=== PATIENT | male | born 1990 | race Caucasian/White ===

== ENCOUNTER 2017-10-22 02:00 | Emergency (ER) | payer OTHER, SELFPAY ==
[2017-10-22 02:08] VITALS: BP 106/65; PULSE 45; RESP 18; TEMP 36.5; O2SAT 100
[2017-10-22] MEDS: ONDANSETRON 4 MG ODT PO (03:46)
--- NOTE | 2017-10-22 03:54 | ED_ITS ---
HPI - Extremity Problem General Chief complaint: Extremity Problem,Nontraumatic Stated complaint: right index finger swollen and red Time Seen by Provider: 10/22/17 02:10 Source: patient Mode of arrival: ambulatory Limitations: no limitations History of Present Illness HPI Narrative: 19-year-old otherwise healthy male presents with a chief complaint of a painful swollen right index finger in the absence of injury. He states has been worsening over the past few days and quite painful to touch. Patient denies any systemic findings such as fever, chills nor nausea or vomiting. He has full range of motion and can make a fist without difficulty. He denies any history of the same. MD Complaint: extremity pain Onset (ago): day(s) Pain Consistency: constant Location: right Quality: burning and aching Radiation: none Relieving factors: nothing Exacerbating factors: range of motion and palpation Associated symptoms: denies other symptoms Related Data Previous Rx's Medication Instructions Recorded doxycycline hyclate 100 mg PO BID #20 tab 10/22/17 Allergies Allergy/AdvReac Type Severity Reaction Status Date / Time No Known Drug Allergies Allergy Verified 10/22/17 02:11 Review of Systems Review of Systems All systems reviewed & are unremarkable except as noted in HPI and below Constitutional Denies chills, Denies fever(s), Denies lethargy and Denies weakness Eyes Denies change in vision, Denies eye discharge, Denies irritation and Denies loss of vision ENT Ears, Nose, Mouth, and Throat: Denies change in voice, Denies neck pain and Denies sore throat Cardiovascular Denies chest pain, Denies irregular heart rhythm, Denies lightheadedness, Denies palpitations, Denies dyspnea, Denies dyspnea on exertion and Denies orthopnea Respiratory Denies cough, Denies dyspnea, Denies dyspnea on exertion and Denies wheezing Gastrointestinal Gastrointestinal: Denies abdominal pain, Denies change in bowel habits, Denies diarrhea, Denies nausea and Denies vomiting Genitourinary Denies hematuria, Denies flank pain, Denies urinary incontinence and Denies urinary urgency Musculoskeletal Reports limited range of motion and Denies neck pain Integumentary/Breasts Denies pruritus, Reports erythema, Denies rash, Reports skin pain, Reports skin swelling and Denies wounds Neurologic Denies confusion, Denies loss of vision and Denies weakness Psychiatric Denies anxiety, Denies confusion, Denies depression, Denies homicidal ideation and Denies suicidal ideation Endocrine Denies palpitations Hematologic/Lymphatic Denies easy bruising Allergic/Immunologic Denies wheezing PFSH Social History Smoking Status: Never smoker Exam Narrative Exam Narrative: GEN: AOx3 and in mild distress EYES: Pupils are equal, round, and reactive to light and accommodation. Extraoccular muscles are intact bilaterally. There is no subconjunctival hemorrhage or exudate. CHEST: Lungs are clear to auscultation bilaterally and free of wheezes, rales, or rhonchi. Heart rate is regular rhythm, there are no murmurs, clicks, rubs, or gallops. There is no chest wall tenderness. ABD: Abdomen is soft and nontender. There is no guarding or rebound. Bowel sounds are normal in all 4 quadrants. There is no mass or organomegaly. EXT: Full but painful range of motion of the right index finger. Swelling, erythema and tenderness at the nail fold of right index finger consistent with paronychia. No signs of flexor tenosynovitis such as sausage finger, stuck in flexion, painful passive extension, versus other. SKIN: Warm, pink, and dry. Initial Vital Signs Initial Vital Signs: Vital Signs Temperature 97.7 F 10/22/17 02:08 Pulse Rate 45 L 10/22/17 02:08 Respiratory Rate 18 10/22/17 02:08 Blood Pressure 106/65 10/22/17 02:08 Pulse Oximetry 100 10/22/17 02:08 Procedures Abscess I/D Site: hand Side (if applicable): right Technique: incised with #11 blade Complications: other (Initial I and D attempt was without any anesthesia and resulted in very minimal drainage. Digital block then performed) Course Orders Ordered: Discontinued Medications Ondansetron HCl (Zofran Odt) 4 mg PO NOW ONE Stop: 10/22/17 03:38 Last Admin: 10/22/17 03:46 Dose: 4 mg Reevaluation(s) Reevaluation #1: During digital block patient became pale and diaphoretic in actually had a brief syncopal episode, presumably vagal in nature. Upon waking patient felt nauseated and states he has had those reactions in the past Vital Signs - 8 hr 10/22/17 02:08 10/22/17 04:39 Temperature 97.7 F Pulse Rate 45 L 45 L Respiratory Rate 18 16 Blood Pressure 106/65 96/61 Pulse Oximetry 100 100 Discharge Plan Departure Patient Disposition: Home Clinical Impression: Paronychia Discharge Date/Time: 10/22/17 04:39 Interventions: ED Discharge Assessment Last Done: 10/22/17 04:39 Instructions: DI for Paronychia Activity Restrictions/Additional Instructions: *You have been diagnosed with [ right index finger paronychia ] *What to do: *Take medications as directed. Soak hand in warm water with Epsom salts twice daily for the next few days *Follow up with your primary care provider in 2-3 days, call for an appointment. Let them know you were seen in the Emergency Department and that we ask that you be seen in follow up *Return to ER if you should have any new, worsening or concerning symptoms , such as [ ] Prescriptions: New doxycycline hyclate 100 mg tablet 100 mg PO BID Qty: 20 RF: 0
--- NOTE | 2017-10-22 04:22 | PC.NURSE ---
pt pale, diaphoretic and syncopal during digital block. pt given cool cloth and zofran odt, per dr orders. pt doing well at this time.
[2017-10-22 04:39] VITALS: BP 96/61; PULSE 45; RESP 16; O2SAT 100
== END 2017-10-22 04:39 | disposition home or self-care (01) ==
PROVIDERS: Emergency Provider Emergency Medicine
DX: L03.011 Cellulitis of right finger (principal)
CPT/HCPCS: 10060; 99282; 99283

== ENCOUNTER → 2018-09-19 08:31 | Outpatient (CLI) | payer OTHER, MEDICAID, SELFPAY ==
[2018-09-19 08:36] LABS: Bacteria Urine None Seen; RBC Urine None Seen (0-5/HPF); WBC Urine None Seen (0-5/HPF)
[2018-09-19 08:58] LABS: Appearance Urine UA CLEAR; Bilirubin Urine UA NEGATIVE (NEGATIVE); Color Urine UA YELLOW; Glucose Urine UA NEGATIVE (Negative); Ketones Urine UA NEGATIVE (NEGATIVE); Leukocyte Esterase Urine UA NEGATIVE (NEGATIVE); Nitrite Urine UA NEGATIVE (Negative); Occult Blood Urine UA NEGATIVE (Negative); Protein Urine UA NEGATIVE (Negative); Specific Gravity Urine UA <=1.005 (1.000-1.035); Urobilinogen Urine UA 0.2 E.U./dL (0.2)
[2018-09-19 09:28] LABS: Hematocrit 40.9 % (41-53); Hemoglobin 13.9 g/dL (13.5-17.5); Mean Corpuscular Hemoglobin 30.6 PG (26-34); Mean Corpuscular Volume 89.8 fL (80-100); Platelet Count 221 X10^3/uL (150-400); Red Blood Cell Count 4.56 X10^6/uL (4.5-5.9); Red Cell Distribution Width 12.8 % (11.6-14.8); White Blood Cell Count 5.3 X10^3/uL (4.5-11.0)
[2018-09-19 09:43] LABS: Alanine Aminotransferase 18 IU/L (21-72); Albumin 4.3 g/dL (3.5-5.0); Albumin Globulin Ratio 1.5 (1.0-2.8); Alkaline Phosphatase 71 U/L (38-126); Aspartate Aminotransferase 22 IU/L (17-59); BUN Creatinine Ratio 18.8 (6-22); Bilirubin Total 0.8 mg/dL (0.2-1.3); Blood Urea Nitrogen 15 mg/dL (9-20); Calcium 9.7 mg/dL (8.4-10.2); Carbon Dioxide 30 mmol/L (22-32); Chloride 101 mmol/L (98-107); Cholesterol 159 mg/dL (140-199); Estimated Glomerular Filt Rate > 60.0 mL/min (>60); Globulin 2.8 g/dL (1.7-4.1); Glucose 83 mg/dL (70-100); HDL Cholesterol 32 mg/dL (40-60); HEMOLYSIS < 15 (0-50); LDL Cholesterol Calculated 101 mg/dL (<100); Potassium 4.1 mmol/L (3.4-5.1); Sodium 140 mmol/L (137-145); Total Protein 7.1 g/dL (6.3-8.2); Triglycerides 131 mg/dL (35-150)
[2018-09-19 10:13] LABS: TSH w/ Reflex to FT4 1.68 uIU/mL (0.47-4.68)
[2018-09-19 10:14] LABS: Amorphous Sediment Urine 1+
[2018-09-19 10:21] LABS: Urine N gonorrhoeae NOT DETECTED
[2018-09-19 10:25] LABS: HIV 1 & 2 Ab/Ag 4th Gen Combo NEGATIVE (NEGATIVE)
[2018-09-19 10:32] LABS: Vitamin B12 480 pg/mL (239-931)
[2018-09-19 10:42] LABS: Urine Chlamydia DETECTED
[2018-09-21 16:06] LABS: RPR Screen Nonreactive (Nonreactive)
[2018-09-22 15:47] LABS: HSV 1 IgM Screen Negative (Negative); HSV 2 IgM Screen Negative (Negative)
[2018-09-24 18:55] LABS: Testosterone Free 63.7 pg/mL (35.0-155.0); Testosterone Total 480 ng/dL (250-1100)
== END ==
PROVIDERS: Visit Provider Nurse Practitioner Family
DX: R59.0 Localized enlarged lymph nodes (principal); Z20.2 Contact with and (suspected) exposure to infections with a predominantly sexual mode of transmission; R53.83 Other fatigue; R00.2 Palpitations; Z00.00 Encounter for general adult medical examination without abnormal findings; Z13.6 Encounter for screening for cardiovascular disorders
CPT/HCPCS: 36415; 80053; 80061; 81001; 82607; 84402; 84403; 84443; 85027; 86592; 86695; 86696; 87389; 87491; 87591

== ENCOUNTER → 2018-11-07 11:58 | Outpatient (CLI) | payer OTHER, MEDICAID, SELFPAY | PROVIDERS: PCP Nurse Practitioner Family; Visit Provider Nurse Practitioner Family | DX: R94.31 Abnormal electrocardiogram [ECG] [EKG] (principal) | CPT/HCPCS: 93005 ==